=== PATIENT | female | born 1995 | race Caucasian/White ===

== ENCOUNTER 2019-07-05 13:25 | Outpatient (CLI) | payer OTHER ==
[2019-07-05 14:30] VITALS: BP 139/73; PULSE 102; RESP 16; TEMP 97.9
--- NOTE | 2019-07-08 08:02 | P.MSEPDOC ---
Presenting Problems - Arrival Data Date of Arrival on Unit: 07/05/19 Time of Arrival on Unit: 13:26 Mode of Transport: Ambulatory - Complaint OB-Reason for Admission/Chief Complaint: Rule Out PROM Comment: pt arrived twin gestation 21 4/7 weeks c/o questionable rom. pt states she notice a gush of fluid around 1130 am pt dnies any gush or constant leaking of fluid at this time. Dr Almaguer in [facility] and triage area and talking to pt and assessing pt Medical History - Information : 1 Para: 0 Term: 0 : 0 Abortions: Spontaneous or Elective: 0 Number of Living Children: 0 - Gestational Age Gestational Age by PERICO (wks/days): 21 Weeks and 4 Days - History Complications: Multiple Review of Systems - Review of Systems Constitutional: No problems Breast: No problems ENT: No problems Cardiovascular: No problems Respiratory: No problems Gastrointestinal: No problems Genitourinary: No problems Musculoskeletal: No problems Neurological: No problems Skin: No problems Vital Signs - Temperature Temperature: 97.9 F Temperature Source: Oral - Pulse Right Brachial Pulse Rate: 102 Pulse Assessment Method: Automatic Cuff - Respirations Respiratory Rate: 16 Oxygen Delivery Method: Room Air - Blood Pressure Right Arm Blood Pressure: 139/73 Blood Pressure Mean: 95 Blood Pressure Source: Automatic Cuff Medical Screen Scoring (Pre) - Cervical Exam Dilation: Exam Deferred Effacement: Exam Deferred Membranes: Intact - Uterine Contractions Frequency: N/A Duration: N/A Intensity: N/A - Maternal Vital Signs Maternal Temperature: N/A Signs of Preeclampsia: N/A Maternal Respirations: N/A - Maternal Trauma Maternal Trauma: N/A - Assessment - Baby A Baseline FHR: 152 - Assessment - Baby B Baseline FHR: 146 Position: N/A Station: N/A - Total Score - Baby A Total Score - Baby A: 0 - Total Score - Baby B Total Score - Baby B: 0 - Total Score - Baby C Total Score - Baby C: 0 - Level of Risk - Baby A Level of Risk - Baby A: Low (0-5) - Level of Risk - Baby B Level of Risk - Baby B: Low (0-5) - Level of Risk - Baby C Level of Risk - Baby C: Low (0-5) Physician Notification (Pre) - Physician Notified Physician Notified Date: 07/05/19 Physician Notified Time: 13:26 New Order Received: Yes - Notification Comment Comment: amnisure testing done and negative results. dr almaguer at bedside explaining to pt plan of care and to call office tomorrow for OB U/S Disposition - Disposition OB Disposition: Physician follow up in office, Discharge to home Discharge Date: 07/05/19 Discharge Time: 14:19 I agree with the RN Medical Screening Exam: Yes Risk & Benefit of care provided described in d/c instruction: Yes Diagnosis: FALSE LABOR BEFORE 37 COMPLETED WEEKS OF GEST, THIRD TRI
== END 2019-07-05 14:19 | disposition home or self-care (01) ==
LOC: FBPOP 13:25
PROVIDERS: ATTEND Obstetrics & Gynecology
DX: O47.02 False labor before 37 completed weeks of gestation, second trimester (principal); Z3A.21 21 weeks gestation of pregnancy
CPT/HCPCS: 84112; 99213

== ENCOUNTER 2019-10-23 06:05 | Inpatient (IN) | payer OTHER ==
[2019-10-21 15:16] VITALS: BMI 36.0
[2019-10-23] MEDS ORDERED: LACTATED RINGERS 1,000 ML IV ONE (06:19)
[2019-10-23] MEDS ORDERED: CITRIC ACID-SODIUM CITRATE 15 ML CUP PO ONE (06:19)
[2019-10-23 06:33] LABS: Glucose,Whole Blood 139 mg/dL (75-99)
[2019-10-23 07:02] LABS: Basophils # (A) 0.1 k/uL (0-0.2); Basophils % (A) 0 %; Eosinophils # (A) 0.2 k/uL (0-0.7); Eosinophils % (A) 1 %; HGB 12.9 gm/dL (11.4-16.0); Lymphocytes # (A) 2.8 k/uL (1.0-4.8); Lymphocytes % (A) 14 %; MCH 27.7 pg (25.0-35.0); MCV 83.9 fL (80.0-100.0); Mean Platelet Volume 8.4; Monocytes # (A) 1.1 k/uL (0-1.0); Monocytes % (A) 5 %; Neutrophils # (A) 15.1 k/uL (1.3-7.7); Neutrophils % (A) 77 %; Platelet Count 244 k/uL (150-450); RBC 4.65 m/uL (3.80-5.40); RDW 14.6 % (11.5-15.5); WBC 19.6 k/uL (3.8-10.6)
[2019-10-23] MEDS ORDERED: ONDANSETRON 4 MG/2 ML VIAL ONE (08:00)
[2019-10-23] MEDS ORDERED: PHENYLEPHRINE-0.9% NACL SYG 1 MG/10 ML SYRINGE ONE (08:00)
[2019-10-23] MEDS ORDERED: KETOROLAC 30 MG/ML 1 ML VIAL ONE (08:00)
[2019-10-23] MEDS ORDERED: MORPHINE SULFATE (PF) 0.3 MG/0.3 ML SYR ONE (08:00)
[2019-10-23] MEDS ORDERED: OXYTOCIN 10 UNIT/ML 1 ML VIAL ONE (08:00)
[2019-10-23] MEDS ORDERED: ONDANSETRON 4 MG/2 ML VIAL IVP PRN ×2 (08:41→09:06)
[2019-10-23] MEDS ORDERED: HYDROmorphone 0.5 MG/0.5 ML SYRINGE IVP PRN (08:41)
[2019-10-23] MEDS ORDERED: NALBUPHINE 10 MG/ML (1 ML AMP) IV PRN (08:41)
[2019-10-23] MEDS ORDERED: NALOXONE 0.4 MG/ML 1 ML VIAL IV PRN ×2 (08:41→09:06)
[2019-10-23] MEDS ORDERED: diphenhydrAMINE 50 MG/ML 1 ML VIAL IVP PRN ×3 (08:41→09:06)
--- NOTE | 2019-10-23 09:00 | P.HPOB ---
History of Present Illness H&P Date: 10/23/19 Chief Complaint: twins at 37-2/7 weeks' gestation This is a 24 year old 1 para 0 woman with an estimated due date of 11/11/2019 based on LMP consistent with second trimester ultrasound. She has a diamniotic dichorionic twin gestation that has been complicated by gestational diabetes. This is been very well controlled with diet alone. Recent ultrasound shows concordant growth of twins in the vertex, non-vertex presentation. Over the last 1 week she's had increasing pelvic pressure and discomfort and the decision is made to proceed with primary low transverse section. Laboratory data: Blood type A+, antibody screen negative, rubella immune, VDRL nonreactive, hepatitis B surface antigen negative, gonorrhea and clinic cultures negative, HIV negative, group B strep negative Review of Systems All systems: negative Past Medical History Past Medical History: No Reported History Additional Past Medical History / Comment(s): Gestational diabetes History of Any Multi-Drug Resistant Organisms: None Reported Past Surgical History: Adenoidectomy, Back Surgery, Tonsillectomy Additional Past Surgical History / Comment(s): 05/2018-DISCECTOMY L4-L5 Past Anesthesia/Blood Transfusion Reactions: No Reported Reaction Past Psychological History: No Psychological Hx Reported Smoking Status: Former smoker Past Alcohol Use History: None Reported Additional Past Alcohol Use History / Comment(s): QUIT SMOKING 03/09/19 Past Drug Use History: None Reported - Past Family History Mother Family Medical History: Deep Vein Thrombosis (DVT) Medications and Allergies Home Medications Medication Instructions Recorded Confirmed Type Pnv,Calcium 72/Iron/Folic Acid 1 each PO DAILY 10/21/19 10/23/19 History [ Plus Tablet] Allergies Allergy/AdvReac Type Severity Reaction Status Date / Time No Known Allergies Allergy Verified 10/21/19 15:09 Exam Vital Signs Temp Pulse Resp BP Pulse Ox 10/23/19 06:36 97.5 F L 105 H 18 130/75 97 Intake and Output 10/22/19 10/23/19 10/23/19 22:59 06:59 14:59 Other: Weight 104.326 kg This is a pleasant visibly gravid female in no obvious distress. HEENT exam is unremarkable. Her breathing is unlabored and her's heart is a regular rate and rhythm. The abdomen is gravid with a fundal height of 42 cm. It is nontender. heart tones are category 1 by external monitoring for both twin A and twin B. She is yan spontaneously every 1-3 minutes. Lower extremities show 1+ bilateral edema. Pelvic exam is deferred. Results Result Diagrams: 10/23/19 06:33 Abnormal Lab Results - Last 24 Hours (Table) 10/23/19 10/23/19 Range/Units 06:32 06:33 WBC 19.6 H (3.8-10.6) k/uL Neutrophils # 15.1 H (1.3-7.7) k/uL Monocytes # 1.1 H (0-1.0) k/uL POC Glucose (mg/dL) 139 H (75-99) mg/dL Assessment and Plan (1) Twin , twins dichorionic and diamniotic Current Visit: Yes Status: Acute Code(s): O30.049 - TWIN , DICHORIONIC/DIAMNIOTIC, UNSP TRIMESTER SNOMED Code(s): 013542952 (2) Gestational diabetes Current Visit: Yes Status: Acute Code(s): O24.419 - GESTATIONAL DIABETES MELLITUS IN , UNSP CONTROL SNOMED Code(s): 56944505 Plan: 24 showed 1 para 0 woman with a vertex, breech diamniotic dichorionic twins at 37-2/7 weeks' gestation. She is admitted for primary low transverse section. Gestational diabetes has been well controlled. The procedure, risks, benefits and anticipated recovery have been reviewed with the patient in detail in the office and all questions have been answered. Consent is obtained. status is currently reassuring by external monitoring. The sugarcane planter will be present on the delivery room for evaluation of the twins postdelivery.
[2019-10-23] MEDS ORDERED: diphenhydrAMINE 50 MG CAP PO PRN (09:06)
[2019-10-23] MEDS ORDERED: ZOLPIDEM 5 MG TAB PO PRN (09:06)
[2019-10-23] MEDS ORDERED: diphenhydrAMINE 25 MG CAP PO PRN (09:06)
[2019-10-23] MEDS ORDERED: SIMETHICONE 80 MG CHEWABLE PO PRN (09:06)
[2019-10-23] MEDS ORDERED: METOCLOPRAMIDE 5 MG/ML 2 ML VIAL IVP PRN (09:06)
[2019-10-23] MEDS ORDERED: HYDROcodone/APAP 7.5-325MG 1 EACH TAB PO PRN (09:06)
--- NOTE | 2019-10-23 09:06 | P.OP ---
Date of Procedure: 10/23/19 Preoperative Diagnosis: Diamniotic dichorionic twins 37-2/7 weeks' gestation Vertex breech presentation Gestational diabetes Postoperative Diagnosis: Same Procedure(s) Performed: Primary low transverse section Anesthesia: spinal Surgeon: Monse Guan Freight Router #1: May Hanson Estimated Blood Loss (ml): 700 IV fluids (ml): 1,200 Urine output (ml): 350 Pathology: other (Placenta) Condition: stable Disposition: floor Operative Findings: Twin a vertex presentation with Apgars of 9 at 1 minute and 9 at 5 minutes weighing 5 lbs. 15 oz., 2690 g Twin B tiffany breech presentation with Apgars of 9 at 1 minute and 9 at 5 minutes weighing 6 lbs. 9 oz., 2960 g. Intact, three-vessel cord 2 placenta noted. Normal uterus fallopian tubes and ovaries bilaterally. Description of Procedure: After the patient and her partner were met in the preoperative holding area and all questions were answered, she stated the operating room where anesthetic was administered without incident. She was positioned, prepped and draped with a Toribio catheter in place. Anesthetic was confirmed adequate and a low transverse skin incision was made. This was carried down to the underlying fascia sharply and with the Bovie electrocautery. The fascia was incised in the midline and extended bilaterally with the Day scissors. The inferior and superior aspects of the fascial incision were elevated and the underlying rectus muscles dissected off sharply. The rectus muscles were in the midline and the peritoneum was identified tented up and entered sharply. The peritoneal incision was extended inferiorly and superiorly with excellent visualization of the bladder. The bladder blade was placed. Vesicouterine peritoneum was tented up and a bladder flap was created sharply. A low transverse uterine incision was then made and clear amniotic fluid was encountered. The uterine incision was extended bilaterally bluntly. a was in the vertex presentation deep ly engaged in the maternal pelvis. Head was delivered from the incision without difficulty and the nose and mouth were bulb suctioned. The rest the was delivered onto the field and the cord was clamped and cut. Expiration of the uterus revealed the tiffany breech presentation of twin B. Both feet were grasped and drawn out of the uterine incision. Amniotic membranes were then ruptured an d clear fluid was again noted. The infant was then delivered from the breech presentation to the level of the scapula. The anterior posterior arms were delivered with rotation. Head was delivered with flexion without difficulty. The was then delivered onto the field and the nose and mouth were bulb suctioned. Cord was clamped and cut. An intact anal static. The uterus was returned to the abdomen and the gutters were cleared of all clot and debris. The uterine incision was reinspected and noted to be hemostatic. The peritoneal edges, fascial edges and rectus muscles were inspected and noted to be hemostatic Bovie electrocautery was utilized were necessary. The fascia was then closed in a running fashion with 0 Vicryl suture. The subcu testicular tissue was copiously suction irrigated and Bovie electrocautery was utilized were necessary. Subcuticular tissue was reapproximated with 3-0 chromic suture and the skin was then closed in a subcutaneous fashion with 4-0 Vicryl. All counts reported to me as correct by the operating room staff and the patient did receive antibiotics preoperatively. She received Pitocin following delivery of the placenta. She was transported to recovery area in good condition.
[2019-10-23 09:09] VITALS: RESP 16
[2019-10-23] MEDS ORDERED: OXYTOCIN 20 UNITS/1000 ML NS 1,000 ML IV SCH (09:15)
[2019-10-23] MEDS: LACTATED RINGERS 1,000 ML IV SCH (22:09)
[2019-10-23] MEDS: SENNOSIDES-DOCUSATE SODIUM 1 EACH TAB PO SCH (22:09)
[2019-10-23] MEDS: KETOROLAC 30 MG/ML 1 ML VIAL IVP PRN (22:11)
[2019-10-24] MEDS: ACETAMINOPHEN TAB 325 MG TAB PO PRN ×4 (02:32→20:27)
[2019-10-24] MEDS: LACTATED RINGERS 1,000 ML IV SCH ×2 (02:39→19:39)
[2019-10-24] MEDS: KETOROLAC 30 MG/ML 1 ML VIAL IVP PRN (06:02)
[2019-10-24 06:21] LABS: Basophils # (A) 0.1 k/uL (0-0.2); Basophils % (A) 1 %; Eosinophils # (A) 0.2 k/uL (0-0.7); Eosinophils % (A) 1 %; HCT 34.1 % (34.0-46.0); HGB 11.5 gm/dL (11.4-16.0); Lymphocytes # (A) 2.8 k/uL (1.0-4.8); Lymphocytes % (A) 16 %; MCH 28.8 pg (25.0-35.0); MCHC 33.6 g/dL (31.0-37.0); MCV 85.7 fL (80.0-100.0); Mean Platelet Volume 8.6; Monocytes # (A) 1.2 k/uL (0-1.0); Monocytes % (A) 7 %; Neutrophils # (A) 13.2 k/uL (1.3-7.7); Neutrophils % (A) 75 %; Platelet Count 211 k/uL (150-450); RBC 3.98 m/uL (3.80-5.40); RDW 14.5 % (11.5-15.5); WBC 17.7 k/uL (3.8-10.6)
--- NOTE | 2019-10-24 06:52 | P.PN ---
Progress Note - Text Progress Note Date: 10/24/19 Postoperative day 1 status post section under spinal anesthesia, and i ntrathecal morphine given for postoperative analgesia, patient doing well, there is no anesthesia related complications, Patient had no headache, vital signs stable , Assessment and plan= postop day 1 status post , doing well there is no anesthesia related complication.
[2019-10-24] MEDS: SENNOSIDES-DOCUSATE SODIUM 1 EACH TAB PO SCH ×2 (09:34→20:28)
--- NOTE | 2019-10-24 12:27 | P.PNOBGPC ---
Subjective - Subjective Patient reports: Reports appetite normal, Reports voiding normally (Initially some difficulty voiding on her own.), Reports pain well controlled, Reports ambulating normally : doing well Objective - Vital Signs Latest vital signs: Vital Signs Temp Pulse Resp BP Pulse Ox 10/24/19 08:00 97.6 F 72 16 114/75 99 10/24/19 06:00 16 10/24/19 04:00 98.2 F 61 16 108/64 10/24/19 01:40 16 10/24/19 00:00 97.9 F 70 16 108/61 10/23/19 22:00 16 10/23/19 20:00 98.4 F 68 16 113/65 97 10/23/19 18:00 16 10/23/19 15:47 97.3 F L 63 16 113/64 98 10/23/19 14:00 16 Intake and Output 10/23/19 10/24/19 10/24/19 22:59 06:59 14:59 Intake Total 480 Output Total 2400 1500 600 Balance -2400 -1020 -600 Intake: Oral 480 Output: Urine 2400 1500 600 Uretheral (Toribio) 1000 1500 600 - Exam Extremities: Present: normal Abdomen: Present: normal appearance, soft. Absent: distention, tenderness Incision: Present: normal, dry, intact Uterus: Present: normal, firm (The uterine fundus is tonic and minimally tender around the umbilicus.) - Labs Labs: Abnormal Lab Results - Last 24 Hours (Table) 10/24/19 Range/Units 05:34 WBC 17.7 H (3.8-10.6) k/uL Neutrophils # 13.2 H (1.3-7.7) k/uL Monocytes # 1.2 H (0-1.0) k/uL Assessment and Plan (1) Status post primary low transverse section Current Visit: Yes Status: Acute Code(s): Z98.891 - HISTORY OF UTERINE SCAR FROM PREVIOUS SURGERY SNOMED Code(s): 753280647 Plan: Continue routine postoperative care. I would anticipate possible discharge home tomorrow pending at complications. I have encouraged the patient ambulating the hallways routinely.
[2019-10-24] MEDS: IBUPROFEN 600 MG TAB PO PRN ×2 (12:32→18:48)
[2019-10-25] MEDS: IBUPROFEN 600 MG TAB PO PRN ×2 (00:31→05:49)
[2019-10-25] MEDS: SENNOSIDES-DOCUSATE SODIUM 1 EACH TAB PO SCH (08:16)
[2019-10-25] MEDS: ACETAMINOPHEN TAB 325 MG TAB PO PRN (08:16)
[2019-10-25 08:32] VITALS: BP 123/75; PULSE 74; TEMP 98.2
--- NOTE | 2019-10-25 11:52 | P.DS ---
Providers Date of admission: 10/23/19 06:05 Expected date of discharge: 10/25/19 Attending physician: Monse Guan Primary care physician: Stated None - Discharge Diagnosis(es) (1) Status post primary low transverse section Current Visit: Yes Status: Acute Hospital Course: The patient is a 24 year 1 para 0 admitted at 37-2/7 weeks by good dating parameters. She is admitted with a known diamniotic dichorionic twin gestation complicated by gestational diabetes with excellent sugar control using diet alone and reassuring testing since 32 weeks. Growth has been concordant, however the second twin is non-vertex and she is admitted for primary low-transverse section. She was taken to the operating room where she underwent primary low-transverse section and uncomplicated fashion was delivered of a viable twin A baby boy, 5 lbs. 15 oz. with Apgars of 9 at 1 minute and 9 at 5 minutes the. She was then delivered of a viable twin B baby boy with a weight of 6 lbs. 9 oz. and Apgars of 9 at 1 minute and 9 at 5 minutes. Her postoperative course has been unremarkable with vital signs remaining stable and her temperature was afebrile throughout. She was deemed stable for discharge on postoperative day #2 was discharged home to follow-up in the office in 2 weeks for an incision check and 6 weeks routinely. Discharge instructions included calling for any significantly increased bleeding or foul- smelling lochia, significantly increased fever or abdominal pain, perineal complaints, breast complaints, incisional complaints, or anything else that concerned her. She is additionally instructed to have nothing in the vagina for at least 6 weeks time to include intercourse and to abstain from any heavy lifting over the same period of time. She was lastly instructed to do no driving until off all pain medications or 2 weeks' time, whichever came first. She understood all of her instructions and agrees to follow up as noted above. Discharge medications included continued vitamins as she has opted to attempt to breast-feed. She additionally was to use [id number] pain medications as needed. She was provided a prescription for Tylenol No. 3, 1-2 by mouth every 6 hours when necessary pain, #20 dispensed with no refills. Maternal blood type is A+ and rubella status is immune. Discharge hemoglobin and hematocrit were 11.5 and 34.1 respectively. Procedures: #1. Primary low-transverse section Patient Condition at Discharge: Good Plan - Discharge Summary Discharge Rx Participant: No New Discharge Prescriptions: No Action Pnv,Calcium 72/Iron/Folic Acid [ Plus Tablet] 1 each PO DAILY Discharge Medication List Pnv,Calcium 72/Iron/Folic Acid [ Plus Tablet] 1 each PO DAILY 10/21/19 [History] Follow up Appointment(s)/Referral(s): Monse Guan MD [STAFF PHYSICIAN] - 2 Weeks Discharge Disposition: HOME SELF-CARE
== END 2019-10-25 13:05 | disposition home or self-care (01) | DRG 788 ==
LOC: 4FBP 06:05
PROVIDERS: ADMIT Obstetrics & Gynecology; ATTEND Obstetrics & Gynecology
PROC: 10D00Z1 Extraction of Products of Conception, Low, Open Approach (ICD-10-PCS; principal; 2019-10-23 08:00)
DX: O32.1XX2 Maternal care for breech presentation, fetus 2 (principal); O30.043 Twin pregnancy, dichorionic/diamniotic, third trimester; O24.429 Gestational diabetes mellitus in childbirth, unspecified control; Z37.2 Twins, both liveborn; Z3A.37 37 weeks gestation of pregnancy; Z87.891 Personal history of nicotine dependence; Z82.49 Family history of ischemic heart disease and other diseases of the circulatory system
CPT/HCPCS: 85025; 86850; 86900; 86901; 88307